=== PATIENT | female | born 1980 | race Caucasian/White ===

== ENCOUNTER 2016-10-17 22:18 | Outpatient (CLI) | payer BC ==
[~2016-10-17] VITALS: Ht 175.3 cm; Wt 142.4 kg
[~2016-10-17 22:18] MED LIST: B-COTAB18 PO; CHOL20009 PO; ERGO500037 PO; FISHOIL PO; FOLI400T18 PO; GLC/500 PO; KELP PO; LEVO200T PO; LEVO50TA PO; LORATAB PO; MULTTAB PO; OXYM0.0592 INTNAS; SERT-234 PO; ZINC1TAB PO
[2016-10-17 23:12] LABS: URINE APPEARANCE CLEAR (CLEAR); URINE BILIRUBIN NEG (NEG); URINE COLOR YELLOW; URINE EPITHELIAL CELL AUTO >30 /lpf (0-5); URINE NITRITE NEG (NEG); URINE PH 6.5 (4.5-7.5); URINE SPECIFIC GRAVITY 1.012 (1.000-1.030); UROBILINOGEN NEG (NEG); ZZURINE CULT IF INDIC CATH YES
[2016-10-17 23:19] VITALS: Ht 175.3 cm; Wt 142.4 kg
[2016-10-17 23:22] LABS: MANUAL MICROSCOPIC REQUIRED? NO; REVIEW REQ? NO
[2016-10-17] MEDS ORDERED: LEVO75TA5 PO (23:24)
--- NOTE | 2016-10-17 23:28 | Progress Note ---
Progress Note Date of Service Oct 17, 2016. Progress Note Last 24 Hours Test 10/17/16 22:30 Urine Color YELLOW Urine Appearance CLEAR Urine pH 6.5 Urine Specific [place] 1.012 Urine Protein NEG Urine Glucose (UA) NEG Urine Ketones NEG Urine Occult Blood NEG Urine Nitrite NEG Urine Bilirubin NEG Urine Urobilinogen NEG Urine Leukocyte Esterase TRACE Urine WBC (Auto) 5-10 /hpf Urine RBC (Auto) 0-4 /hpf Urine Hyaline Casts (Auto) 1-5 /lpf Urine Epithelial Cells (Auto) >30 /lpf Urine Bacteria (Auto) 1+ 38 F P0000 at 31.3 weeks with small dime sized clot earlier today when voiding and noted to be larger to quarter size. No pain or contractions. No nausea or vomiting. No history of kidney stones or hematuria or any frequency of urination. Did have some extra walking about a mile yesterday while at work. T Cat 1 with irregular contractions not felt by patient. Sterile speculum done with no leakage of fluid and no bleeding. Cervix is closed on exam. Will check urine and hydrate orally.
--- NOTE | 2016-10-18 00:27 | Progress Note ---
Progress Note Date of Service Oct 18, 2016. Progress Note Urine culture is pending. Patient not having any bleeding. Will encourage hydration and to call if any further spotting. She is to call the office for culture results tomorrow.
== END 2016-10-18 00:30 | disposition home or self-care (01) ==
LOC: C.OPB 22:18 → C.LD 22:18 → C.OPB 10-18 00:30
PROVIDERS: ATTEND Obstetrics & Gynecology
DX: O62.9 Abnormality of forces of labor, unspecified (principal); Z3A.31 31 weeks gestation of pregnancy

== ENCOUNTER 2016-11-19 05:47 | Inpatient (IN) | payer BC ==
[2016-11-18 12:06] LABS: BASO % 0.2 %; BASO ABS # 0.02 K/uL (0-0.2); COMPLETE YES; EOS % 0.5 %; HEMATOCRIT 33.7 % (37-47); IG% 0.8 %; LYMPH ABS # 1.89 K/uL (1.2-3.4); MEAN CELL VOLUME 85.8 fL (80-100); MEAN CORPUSCULAR HEMOGLOBIN 27.5 pg (25-34); MEAN PLATELET VOLUME 10.8 fL (7.4-10.4); NEUT % 70.5 %; PLATELET COUNT 310 K/uL (130-400); RED BLOOD COUNT 3.93 M/uL (4.2-5.4); WHITE BLOOD COUNT 9.43 K/uL (4.8-10.8)
[2016-11-19] VITALS (12 sets, daily range): BP systolic 109–121; BP diastolic 68–72; PULSE 60–71; TEMP 36.7–37; O2SAT 95–100; Ht 175.3 cm; Wt 145.0 kg
[~2016-11-19] VITALS: Ht 175.3 cm; Wt 145.0 kg
[~2016-11-19 05:47] MED LIST changes: -FISHOIL PO; -GLC/500 PO; -KELP PO; -LEVO50TA PO; +LEVO75TA5 PO
[2016-11-19] MEDS ORDERED: LACTATED RINGER'S 1000ML 1,000 ML IV SCH ×4 (05:57→09:00)
[2016-11-19] MEDS ORDERED: CEFAZOLIN IV 3,000 MG in DEXTROSE 5% 50ML IV SCH (06:00)
[2016-11-19] MEDS ORDERED: CITRIC ACID/SODIUM CITRATE 15 ML UDC PO SCH (06:00)
[2016-11-19 06:23] LABS: BASO % 0.2 %; BASO ABS # 0.02 K/uL (0-0.2); COMPLETE YES; EOS % 0.8 %; HEMATOCRIT 32.4 % (37-47); IG% 0.7 %; LYMPH % 23.1 %; LYMPH ABS # 2.37 K/uL (1.2-3.4); MEAN CELL VOLUME 84.4 fL (80-100); MEAN CORPUSCULAR HEMOGLOBIN 26.8 pg (25-34); MEAN CORPUSCULAR HGB CONC 31.8 g/dl (32-36); MEAN PLATELET VOLUME 10.8 fL (7.4-10.4); MONO % 6.3 %; NEUT % 68.9 %; PLATELET COUNT 318 K/uL (130-400); RED BLOOD COUNT 3.84 M/uL (4.2-5.4); WHITE BLOOD COUNT 10.24 K/uL (4.8-10.8)
--- NOTE | 2016-11-19 07:03 | History & Physical Bridge Note ---
H&P Re-Evaluation Bridge Note: I have examined the patient, reviewed the History & Physical and in the interval since the performance of the History & Physical I have noted the following changes of clinical significance: No changes noted
[2016-11-19] MEDS ORDERED: MoRPHine SULFATE PF 1 MG/ML 10 ML AMP/VIAL ONE (07:37)
[2016-11-19] MEDS ORDERED: PHENYLEPHRINE 100MCG/ML 5ML SYR ONE (08:27)
[2016-11-19] MEDS ORDERED: OXYTOCIN INJ 10 UNITS/ML VIAL ONE (08:27)
[2016-11-19] MEDS ORDERED: EpHEDrine SULFATE 50MG/5ML SYR ONE (08:27)
[2016-11-19] MEDS ORDERED: DIPHTHERIA/TETANUS/PERTUSSIS 0.5 ML SYR/VIAL IM. ONE (09:00)
[2016-11-19] MEDS ORDERED: SUPERCREAM 0.870 % 15GM JAR EXT PRN (09:00)
[2016-11-19] MEDS ORDERED: HYDROCORTISONE ACETATE 25 MG SUPP PR PRN (09:00)
[2016-11-19] MEDS ORDERED: BENZOCAINE 20% AER SPR 82.5 GM CAN EXT PRN (09:00)
[2016-11-19] MEDS ORDERED: MAGNESIUM HYDROXIDE SUSP 30 ML UDC PO PRN (09:00)
[2016-11-19] MEDS ORDERED: LANOLIN OINT EXT PRN ×2 (09:00)
[2016-11-19] MEDS: SIMETHICONE 80 MG CHEW PO SCH ×3 (09:00→20:28)
[2016-11-19] MEDS ORDERED: SENNA 8.6 MG TAB PO PRN (09:00)
[2016-11-19] MEDS ORDERED: IBUPROFEN 600 MG TAB PO PRN (09:00)
[2016-11-19] MEDS ORDERED: KETOROLAC TROMETHAMINE 30 MG/ML VIAL IV. PRN ×2 (09:00→09:30)
--- NOTE | 2016-11-19 09:08 | [facility] Post Operative Brief Note ---
Immediate Operative Summary Operative Date Nov 19, 2016. Pre-Operative Diagnosis Intrauterine at 36.2 weeks, Cholestasis of , Breech Post-Operative Diagnosis Same, Primary Caesarean Section for living male child at 0812 Procedure(s) Performed Primary Caesarean Section for living male child at [address] Jasmine Demo Specialist Surgeon(s) Dr. Ross Estimated Blood Loss 600 ml Findings Patient delivered a viable male in the rashawn breech presentation via primary section at 0812 on 11/19/16 with APGARs of 8 at 1 minute and 9 at 5 minutes. Please pediatricians notes for further baby assessment. Cord blood obtained. Intact placenta with a 3 VC delivered manually at 0813 and sent to pathology. Normal uterus and bilateral tubes and ovaries noted. Both patient and baby tolerated the surgery well and were sent to recovery with stable vital signs. Fluids (cc crystalloids) 1200 Specimens Placenta-exam cord blood Drains Marcus to Cherry Log Anesthesia Spinal Complication(s) None Disposition L&D
[2016-11-19] MEDS ORDERED: LACTATED RINGER'S 1000ML 500 ML IV PRN (09:17)
[2016-11-19] MEDS ORDERED: NALOXONE HCL INJ 0.08 MG in SYRINGE 1.8 ML IV PRN (09:17)
[2016-11-19] MEDS ORDERED: NALOXONE HCL INJ 1 MG in SODIUM CHLORIDE 0.9% 1000ML 1,000 ML IV PRN (09:17)
[2016-11-19] MEDS ORDERED: SODIUM CHLORIDE 0.9% 1000ML 1,000 ML IV PRN (09:17)
[2016-11-19] MEDS ORDERED: NO NARCOTICS OR SEDATIVES SCH (09:30)
[2016-11-19] MEDS ORDERED: LABETALOL HCL IV 5 MG/ML 20ML IV PRN (09:30)
[2016-11-19] MEDS ORDERED: ONDANSETRON INJ 2 MG/ML 2 ML VIAL IV PRN ×2 (09:30)
[2016-11-19] MEDS ORDERED: MoRPHine SULFATE 2 MG/ML CARP IV PRN (09:30)
[2016-11-19] MEDS ORDERED: FENTANYL CITRATE INJ 50 MCG/1 ML 2 ML VIAL IV PRN (09:30)
[2016-11-19] MEDS ORDERED: EpHEDrine SULFATE INJ 50 MG/ML AMP IV PRN ×2 (09:30)
[2016-11-19] MEDS ORDERED: DiphenhydrAMINE HCL 50 MG/ML VIAL IV PRN (09:30)
[2016-11-19] MEDS ORDERED: MoRPHine SULFATE PF 1 MG/ML 10 ML AMP/VIAL EPI PRN (09:30)
[2016-11-19] MEDS ORDERED: NALOXONE HCL 0.4 MG/1 ML VIAL/CARP IV PRN (09:30)
[2016-11-19] MEDS ORDERED: ATROPINE SULFATE 0.1 MG/ML 5ML SYR IV PRN (09:30)
[2016-11-19] MEDS ORDERED: MEPERIDINE HCL 25 MG/ML CARP IV PRN ×2 (09:30)
[2016-11-19] MEDS ORDERED: HYDROmorphone INJ 1 MG/ML SYR IV PRN (09:30)
--- NOTE | 2016-11-19 10:37 | OPERATIVE REPORT ---
DATE OF OPERATION: 11/19/2016 PREOPERATIVE DIAGNOSES: 1. Intrauterine at 36 weeks and 2 days gestation. 2. Cholestasis of . 3. Breech. POSTOPERATIVE DIAGNOSES: Same. OPERATIVE PROCEDURE: Primary low transverse section. SURGEON: Dr. Jasmine. JIG WORKER: Dr. Ross. ANESTHESIA: Spinal. ESTIMATED BLOOD LOSS: 600 mL. IV FLUIDS: 1200 mL crystalloids. URINE OUTPUT: 250 mL clear, yellow urine. SPECIMENS: Placenta and cord blood. DRAINS: Marcus to gravity. COMPLICATIONS: None. DISPOSITION: Labor delivery. OPERATIVE FINDINGS: The patient delivered a viable male infant in the rashawn breech presentation via primary section at 8:12 a.m. on 11/19/2016 with Apgars of 8 at 1 minute and 9 at 5 minutes. Please see documentation consultant's notes for further baby assessment. Cord blood was then obtained and intact placenta with 3-vessel cord was delivered manually at 813 and sent to pathology. Normal uterus and bilateral tubes and ovaries noted. Both patient and baby tolerated the surgery well and were sent to recovery with stable vital signs. OPERATIVE PROCEDURE IN DETAIL: The patient was taken to the operating room where spinal anesthesia was administered. The patient was then immediately placed in dorsal supine position with a left lateral tilt and was prepped and draped in a manner appropriate for the procedure. Once the anesthesia was found to be adequate, a Pfannenstiel skin incision was made 2 fingerbreadths above the pubic symphysis and was carried down through to a layer of the rectus fascia. The fascia was nicked in the midline and extended bilaterally with curved Lyons scissors. The superior aspect of the fascial incision was grasped with Tigre clamps, elevated, and the rectus muscles were dissected off with the use of the electrocautery and curved Lyons scissors. Likewise, the inferior aspect of the fascial incision was grasped with Tigre clamps and elevated and the rectus muscles were dissected off with the use of the curved Lyons scissors. The rectus muscles were in midline. Peritoneum was grasped with hemostats x2 and the peritoneum was entered with Metzenbaum scissors. Peritoneal incision was then extended cephalocaudally with gentle traction. An Omar retractor was then placed within the abdomen. The bladder blade was then placed within the abdomen as well. The vesicouterine peritoneum was identified and the bladder flap was created with Metzenbaum scissors and digital traction. The bladder flap was reincorporated beneath the Grant blade. A transverse incision was then made on the uterus and extended bilaterally with the bandage scissors. Clear amniotic fluid was noted. The baby was then delivered in the rashawn breech presentation with breech maneuvers without difficulty. Baby was bulb suctioned at delivery. Cord was clamped x2 and cut. The baby was immediately handed to awaiting documentation consultant for further evaluation and management. Cord blood was then obtained and intact placenta with 3-vessel cord was delivered through the incision manually and was sent to pathology. The uterus was then exteriorized and wrapped in a moist laparotomy sponge. The uterus was then cleared of any trailing membrane and debris with laparotomy sponge. The uterine incision was grasped with ring forceps at 4 quadrants and was closed with 0 Vicryl suture in continuous locking fashion. A second layer of 0 Vicryl suture was used in imbricating fashion to ensure hemostasis. Any residual bleeding was suture ligated with 0 Vicryl suture in a [id number] interrupted fashion. Excellent hemostasis was noted at the incision, the bladder flap was reapproximated with 3-0 Vicryl suture in continuous running fashion. The posterior cul-de-sac was then irrigated with warm saline solution. The uterus was then placed back within the abdomen in its normal anatomic position. The anterior cul-de-sac was then irrigated with warm saline solution as well. Inspection of the uterine incision was again noted to be hemostatic. Seprafilm was placed over the incision along the fundus of the uterus. All instruments were then removed from the abdomen as well as the Omar retractor. The peritoneum was then grasped with Samantha clamps and was closed with 2-0 Vicryl suture in continuous running fashion. The rectus muscles were reapproximated with 0 Vicryl suture in a [id number] interrupted fashion. The rectus fascia was then closed with 0 Vicryl suture in continuous running fashion. Subcutaneous tissue was reapproximated with 2-0 plain in a continuous running fashion. Skin was then closed with terry. Excellent hemostasis was noted through all tissue layers. All sponge and instrument counts were found to be correct x2. Both patient and baby tolerated the surgery well and were sent to recovery with stable vital signs. I attest to the content of the Intraoperative Record and any orders documented therein. Any exceptio ns are noted below.
--- NOTE | 2016-11-19 10:48 | Anesthesiology Progress Note ---
Anesthesia Post Op Note Date & Time Nov 19, 2016 at 10:47 Notes Mental Status: alert / awake / arousable, participated in evaluation Pt Amnestic to Procedure: Yes Nausea / Vomiting: adequately controlled Pain: adequately controlled Airway Patency, RR, SpO2: stable & adequate BP & HR: stable & adequate Hydration State: stable & adequate Neuraxial Anesthesia: was administered, sensory block is resolving Anesthetic Complications: no major complications apparent
[2016-11-19] MEDS: DiphenhydrAMINE HCL 50 MG/ML VIAL IV PRN ×2 (11:21→18:05)
[2016-11-19] MEDS: OXYTOCIN INJ 30 UNITS in LACTATED RINGER'S 1000ML 1,000 ML IV SCH ×2 (12:16→20:30)
[2016-11-19] MEDS: NALBUPHINE HCL INJ 10 MG/ML AMP IV PRN ×2 (13:35→20:34)
[2016-11-19] MEDS: DOCUSATE SODIUM 100 MG CAP PO SCH (20:28)
[2016-11-20] MEDS ORDERED: OXYCODONE/ACETAMINOPHEN 5-325 TAB PO PRN (01:45)
[2016-11-20] MEDS ORDERED: DC INTRASPINAL MORPHINE ONE (01:45)
[2016-11-20] MEDS ORDERED: ONDANSETRON INJ 2 MG/ML 2 ML VIAL IV PRN (01:45)
[2016-11-20] MEDS ORDERED: KETOROLAC TROMETHAMINE 30 MG/ML VIAL IV PRN (03:15)
[2016-11-20] MEDS ORDERED: KETOROLAC TROMETHAMINE 30 MG/ML VIAL ONE (03:21)
[2016-11-20 06:16] LABS: BASO % 0.2 %; BASO ABS # 0.02 K/uL (0-0.2); EOS % 0.7 %; HEMATOCRIT 26.7 % (37-47); IG% 0.4 %; LYMPH % 19.7 %; LYMPH ABS # 2.21 K/uL (1.2-3.4); MEAN CORPUSCULAR HEMOGLOBIN 26.7 pg (25-34); MEAN CORPUSCULAR HGB CONC 31.8 g/dl (32-36); MEAN PLATELET VOLUME 9.9 fL (7.4-10.4); MONO % 7.3 %; NEUT % 71.7 %; PLATELET COUNT 256 K/uL (130-400); RED BLOOD COUNT 3.18 M/uL (4.2-5.4); WHITE BLOOD COUNT 11.22 K/uL (4.8-10.8)
[2016-11-20] MEDS: LEVOTHYROXINE 200 MCG TAB PO SCH (06:39)
[2016-11-20] MEDS: LEVOTHYROXINE 75 MCG TAB PO SCH (06:39)
[2016-11-20 07:13] LABS: COMPLETE YES
[2016-11-20 07:45] VITALS: BP 119/77; PULSE 65; TEMP 36.6; O2SAT 100
--- NOTE | 2016-11-20 08:15 | OB/GYN Progress Note ---
PICK UP Progress Note Date of Service: Nov 20, 2016. Patient is seen and examined. She feels well, no complaints. Pain is under control with oral meds. Ambulating without dizziness Voiding without difficulty Tolerating clear diet with out N&V Desires to eat regular foof Flatus neg BM neg Bleeding is minimal No fever/ chills/ CP/ SOB/ N&V/ Leg pain Breast feeding without problems Date Time Temp Pulse Resp B/P Pulse Ox O2 Delivery O2 Flow Rate FiO2 11/19/16 23:40 100 Room Air 11/19/16 23:40 36.8 71 18 109/68 100 Room Air 11/19/16 23:40 18 100 11/19/16 22:10 20 99 11/19/16 21:15 20 95 11/19/16 20:10 18 99 11/19/16 19:25 36.7 62 18 112/71 100 Room Air 11/19/16 18:10 20 98 11/19/16 17:10 18 99 11/19/16 16:10 18 97 11/19/16 15:20 18 99 11/19/16 15:20 98 Room Air 11/19/16 15:20 37.0 60 18 111/68 99 Room Air 11/19/16 14:10 20 98 11/19/16 13:10 20 100 11/19/16 12:10 97 Room Air 11/19/16 12:10 20 97 11/19/16 12:10 36.8 65 20 121/72 97 Room Air 11/19/16 12:10 97 Room Air 8-Hour Column 11/19/16 11/20/16 11/20/16 16:00 00:00 08:00 Intake Total 341 ml 1917 ml 1178 ml Output Total 200 ml 350 ml 400 ml Balance 141 ml 1567 ml 778 ml 24-Hour Column 11/20/16 08:00 Intake Total 3436 ml Output Total 950 ml Balance 2486 ml PE: General: Alert, orientedx3, NAD CVS: S1S2 RRR Lungs; CTAB Abd: soft, NT, fundus firm, below Umbilicus Dressing: Clean, dry, intact Perineum intact, Lochia rubra minimal Ext; NT, no edema AP: 36 yo s/p C Section, pod# 1 VSS Afebrile doing well Continue routine postop care Encourage ambulation, PO intake All questions were answered
[2016-11-20] MEDS: FERROUS SULFATE 325 MG TAB PO SCH (08:37)
[2016-11-20] MEDS: SIMETHICONE 80 MG CHEW PO SCH ×4 (08:38→20:03)
[2016-11-20] MEDS: SERTRALINE HCL 100 MG TAB PO SCH (08:38)
[2016-11-20] MEDS: PRENATAL VITAMIN TAB PO SCH (08:38)
[2016-11-20] MEDS: DOCUSATE SODIUM 100 MG CAP PO SCH ×2 (08:38→20:03)
[2016-11-20 08:39] LABS: BUN/CREATININE RATIO 12.8 (10-20); CREATININE 0.72 mg/dl (0.60-1.20); POTASSIUM 3.6 mmol/L (3.5-5.1)
[2016-11-20 08:42] LABS: ALB/GLOB RATIO 0.5 (0.9-2)
[2016-11-20] MEDS ORDERED: CALCIUM CARBONATE 500 MG CHEWABLE PO PRN (08:45)
[2016-11-20 08:51] LABS: CALCIUM 8.3 mg/dl (8.5-10.1)
[2016-11-20] MEDS: OXYCODONE/ACETAMINOPHEN 5-325 TAB PO PRN ×4 (09:23→22:04)
[2016-11-20] MEDS: RANITIDINE HCL 150 MG TAB PO SCH (09:23)
[2016-11-20 15:50] VITALS: BP 131/84; PULSE 84; TEMP 37.1
[2016-11-20] MEDS ORDERED: BISACODYL 5 MG TABEC PO ONE (22:00)
[2016-11-21 00:05] VITALS: BP 126/84; PULSE 64; TEMP 36.9
[2016-11-21] MEDS: OXYCODONE/ACETAMINOPHEN 5-325 TAB PO PRN ×4 (01:47→17:16)
[2016-11-21 07:21] LABS: HEMATOCRIT 31.7 % (37-47)
--- NOTE | 2016-11-21 07:25 | OB/GYN Progress Note ---
ENCODING CLERK Progress Note Date of Service Nov 21, 2016. Subjective conversation w/ patient, physical exam Ambulation: ambulating normally Voiding: no voiding problems Passing Gas: Yes Diet Tolerance: Regular Diet Lochia: Small Feeding Type: Breast Feeding Pain: 10/04 Notes: Doing well, no concerns. Pain well controlled. Tolerating regular diet, +flatus , -BM. Ambulating without difficulty. Objective Vital Signs Date Time Temp Pulse Resp B/P Pulse Ox O2 Delivery O2 Flow Rate FiO2 11/21/16 00:05 Room Air 11/21/16 00:05 36.9 64 18 126/84 Room Air 11/20/16 15:50 37.1 84 16 131/84 Room Air 11/20/16 15:50 Room Air 11/20/16 07:45 Room Air 11/20/16 07:45 36.6 65 20 119/77 100 Room Air Physical Exam General Appearance: WELL-APPEARING Respiratory/Chest: chest non-tender, lungs clear Cardiovascular: regular rate, rhythm Abdomen: normal bowel sounds, soft Fundus: Firm Incision Description: Clean, Dry & Intact Extremities: normal range of motion, non-tender, no calf tenderness Laboratory Results Last 24 Hours Test 11/20/16 07:52 11/21/16 06:44 Sodium Level 138 mmol/L Potassium Level 3.6 mmol/L Chloride Level 108 mmol/L Carbon Dioxide Level 22 mmol/L Anion Gap 8.0 mmol/L Blood Urea Nitrogen 9 mg/dl Creatinine 0.72 mg/dl Est Creatinine Clear Calc Drug Dose 163.5 ml/min Estimated GFR () 123.1 Estimated GFR (Non- 106.2 BUN/Creatinine Ratio 12.8 Random Glucose 64 mg/dl Calcium Level 8.3 mg/dl Total Bilirubin 0.2 mg/dl Aspartate Amino Transf (AST/SGOT) 46 U/L Alanine Aminotransferase (ALT/SGPT) 111 U/L Alkaline Phosphatase 227 U/L Total Protein 5.8 gm/dl Albumin 2.0 gm/dl Globulin 3.8 gm/dl Albumin/Globulin Ratio 0.5 Hemoglobin 10.0 g/dL Hematocrit 31.7 % Assessment and Plan Post-Op Day Number: 2 Continue Routine Care: -Continue routine postop care -Advance activity as tolerated -Anticipate D/C home tomorrow AM
[2016-11-21] MEDS: LEVOTHYROXINE 200 MCG TAB PO SCH (07:45)
[2016-11-21] MEDS: PRENATAL VITAMIN TAB PO SCH (07:46)
[2016-11-21] MEDS: LEVOTHYROXINE 75 MCG TAB PO SCH (07:46)
[2016-11-21] MEDS: DOCUSATE SODIUM 100 MG CAP PO SCH ×2 (07:46→19:54)
[2016-11-21] MEDS: SIMETHICONE 80 MG CHEW PO SCH ×4 (07:46→19:54)
[2016-11-21] MEDS: FERROUS SULFATE 325 MG TAB PO SCH (07:46)
[2016-11-21] MEDS: RANITIDINE HCL 150 MG TAB PO SCH (07:47)
[2016-11-21 07:49] LABS: BUN/CREATININE RATIO 9.1 (10-20); CALCIUM 8.5 mg/dl (8.5-10.1); CREATININE 0.73 mg/dl (0.60-1.20); POTASSIUM 3.6 mmol/L (3.5-5.1)
[2016-11-21] MEDS: SERTRALINE HCL 100 MG TAB PO SCH (07:49)
[2016-11-21 07:51] LABS: ALB/GLOB RATIO 0.6 (0.9-2)
[2016-11-21 07:55] VITALS: O2SAT 99
[2016-11-21 08:35] VITALS: BP 136/86; PULSE 78; TEMP 36.8; O2SAT 99
[2016-11-21] MEDS ORDERED: BISACODYL 10 MG SUPP PR PRN (09:00)
[2016-11-21 16:45] VITALS: BP 131/83; PULSE 78; TEMP 36.8; O2SAT 100
[2016-11-22] VITALS: BP 137/84; PULSE 72; TEMP 36.9
[2016-11-22] MEDS: OXYCODONE/ACETAMINOPHEN 5-325 TAB PO PRN ×4 (00:02→17:14)
[2016-11-22 07:06] LABS: HEMATOCRIT 32.4 % (37-47); MEAN CELL VOLUME 85.5 fL (80-100); MEAN CORPUSCULAR HEMOGLOBIN 26.9 pg (25-34); MEAN CORPUSCULAR HGB CONC 31.5 g/dl (32-36); MEAN PLATELET VOLUME 9.9 fL (7.4-10.4); PLATELET COUNT 320 K/uL (130-400); RED BLOOD COUNT 3.79 M/uL (4.2-5.4); WHITE BLOOD COUNT 8.67 K/uL (4.8-10.8)
[2016-11-22] MEDS: RANITIDINE HCL 150 MG TAB PO SCH (08:32)
[2016-11-22] MEDS: PRENATAL VITAMIN TAB PO SCH (08:32)
[2016-11-22] MEDS: FERROUS SULFATE 325 MG TAB PO SCH (08:33)
[2016-11-22] MEDS: LEVOTHYROXINE 75 MCG TAB PO SCH (08:33)
[2016-11-22] MEDS: DOCUSATE SODIUM 100 MG CAP PO SCH (08:33)
[2016-11-22] MEDS: LEVOTHYROXINE 200 MCG TAB PO SCH (08:33)
[2016-11-22] MEDS: SERTRALINE HCL 100 MG TAB PO SCH (08:34)
[2016-11-22] MEDS: SIMETHICONE 80 MG CHEW PO SCH ×3 (08:34→17:15)
[2016-11-22 08:40] VITALS: BP 137/81; PULSE 91; TEMP 36.9; O2SAT 100
[2016-11-22] MEDS ORDERED: OXYC-57 PO (08:47)
--- NOTE | 2016-11-22 09:09 | OB/GYN Progress Note ---
PRODUCTION WELDER Progress Note Date of Service: Nov 22, 2016. Patient is seen and examined. She feels well, no complaints. Pain is under control with oral meds. Ambulating without dizziness Voiding without difficulty Tolerating regular diet with out N&V Flatus + BM Neg Bleeding is minimal No fever/ chills/ CP/ SOB/ N&V/ Leg pain Breast feeding without problems Discussed contraception with patient in details. Abstinence for 6 weeks, progestin only pills, Nexplanon, IUD's, Mirena and Paragard. Will decide at 6 wks pp Date Time Temp Pulse Resp B/P Pulse Ox O2 Delivery O2 Flow Rate FiO2 11/22/16 00:00 Room Air 11/22/16 00:00 36.9 72 18 137/84 11/21/16 16:45 100 Room Air 11/21/16 16:45 36.8 78 18 131/83 100 Room Air Test 10/17/16 22:30 11/18/16 11:03 11/19/16 06:08 11/20/16 05:54 Urine Color YELLOW Urine Appearance CLEAR Urine pH 6.5 Urine Specific [place] 1.012 Urine Protein NEG Urine Glucose (UA) NEG Urine Ketones NEG Urine Occult Blood NEG Urine Nitrite NEG Urine Bilirubin NEG Urine Urobilinogen NEG Urine Leukocyte Esterase TRACE H Urine WBC (Auto) 5-10 H Urine RBC (Auto) 0-4 Urine Hyaline Casts (Auto) 1-5 Urine Epithelial Cells (Auto) >30 H Urine Bacteria (Auto) 1+ H Immature Granulocyte % (Auto) 0.8 0.7 0.4 White Blood Count 9.43 10.24 11.22 H Red Blood Count 3.93 L 3.84 L 3.18 L Hemoglobin 10.8 L 10.3 L 8.5 L Hematocrit 33.7 L 32.4 L 26.7 L Mean Corpuscular Volume 85.8 84.4 84.0 Mean Corpuscular Hemoglobin 27.5 26.8 26.7 Mean Corpuscular Hemoglobin Concent 32.0 31.8 L 31.8 L Platelet Count 310 318 256 Mean Platelet Volume 10.8 H 10.8 H 9.9 Neutrophils (%) (Auto) 70.5 68.9 71.7 Lymphocytes (%) (Auto) 20.0 23.1 19.7 Monocytes (%) (Auto) 8.0 6.3 7.3 Eosinophils (%) (Auto) 0.5 0.8 0.7 Basophils (%) (Auto) 0.2 0.2 0.2 Neutrophils # (Auto) 6.64 H 7.05 H 8.05 H Lymphocytes # (Auto) 1.89 2.37 2.21 Monocytes # (Auto) 0.75 H 0.65 H 0.82 H Eosinophils # (Auto) 0.05 0.08 0.08 Basophils # (Auto) 0.02 0.02 0.02 Immature Granulocyte # (Auto) 0.08 H 0.07 H 0.04 H RDW Standard Deviation 41.9 41.6 RDW Coefficient of Variation 13.7 13.6 Red Blood Cell Morphology Unremarkable Test 11/20/16 07:52 11/21/16 06:44 11/22/16 06:37 11/22/16 09:04 Sodium Level 138 142 Pending Potassium Level 3.6 3.6 Pending Chloride Level 108 H 110 H Pending Carbon Dioxide Level 22 27 Pending Anion Gap 8.0 5.0 Pending Blood Urea Nitrogen 9 7 Pending Creatinine 0.72 0.73 Pending Est Creatinine Clear Calc Drug Dose 163.5 161.2 Estimated GFR () 123.1 121.1 Pending Estimated GFR (Non- 106.2 104.5 Pending BUN/Creatinine Ratio 12.8 9.1 L Pending Random Glucose 64 L 87 Pending Calcium Level 8.3 L 8.5 Pending Total Bilirubin 0.2 0.2 Pending Aspartate Amino Transferase (AST) 46 H 29 Pending Alanine Aminotransferase (ALT) 111 H 91 H Pending Alkaline Phosphatase 227 H 203 H Pending Total Protein 5.8 L 6.2 L Pending Albumin 2.0 L 2.2 L Pending Globulin 3.8 4.0 Pending Albumin/Globulin Ratio 0.5 L 0.6 L Pending Hemoglobin 10.0 L 10.2 L Hematocrit 31.7 L 32.4 L White Blood Count 8.67 Red Blood Count 3.79 L Mean Corpuscular Volume 85.5 Mean Corpuscular Hemoglobin 26.9 Mean Corpuscular Hemoglobin Concent 31.5 L RDW Standard Deviation 43.5 RDW Coefficient of Variation 14.0 Platelet Count 320 Mean Platelet Volume 9.9 PE: General: Alert, orientedx3, NAD CVS: S1S2 RRR Lungs; CTAB Abd: soft, NT, fundus firm, below Umbilicus Incision: Clean, dry, intact Perineum intact, Lochia rubra minimal Ext; NT, 1+/1+ edema, SCD's on AP: 36 yo s/p C Section, pod# 3 VSS Afebrile doing well LFT's improved, today's labs pending Has been on Percocet h/o weight loss surgery, unable to use NSAID's Continue routine postop care Encourage ambulation, PO intake All questions were answered D/C home after labs f/o next week for incision check
--- NOTE | 2016-11-22 09:11 | Discharge Instructions ---
Discharge Instructions Date of Service Nov 22, 2016. Admission Reason for Admission: Intrahepatic Cholestasis Of (Icp), Breech Discharge Discharge Diagnosis / Problem: Primary Csection Discharge Goals Goal(s): Routine recovery after Medications Continue Dispensed Medications: lansinoh Activity Recommendations Activity Limitations: as noted below Lifting Limitations: no more than 10 pounds Exercise/Sports Limitations: until after follow-up appointment May Resume Sexual Activity: after follow-up appointment Shower/Bathe: keep incision dry Driving or Machine Use: ACTIVITY RECOMMENDATIONS: * Gradual return to full activity over the next 2-3 weeks. * No lifting - nothing heavier than baby over the next 2-3 weeks. * Do not engage in vigorous exercise, sexual activity or sports until cleared by your physician. * Do not drive or operate any motorized equipment until cleared by your physician. * You may shower/bathe daily. BREAST CARE: If you are not breast feeding: * Wear a supportive bra 24 hours a day for one to two weeks. * Avoid stimulating your breasts and nipples as much as possible during the first few weeks after delivery. * When taking a shower, have the warm water hit your back, not breasts. * When your breasts feel full, apply ice packs. Usually three to four times a day helps ease the discomfort. * Take a mild pain medication (Tylenol/Motrin) when you are uncomfortable. If breast feeding: * Use breast milk to lubricate nipples. Lansinoh cream may be used for sore nipples. You do not need to remove cream prior to breast feeding. If using a different brand of cream, check the label for directions regarding removal of cream prior to nursing. * Wear a supportive bra. * If having problems with breasts or breast feeding, call a store sales consultant or your health care provider. OVER THE COUNTER MEDICATION: * For discomfort or pain, you may use Acetaminophen (Tylenol), Ibuprofen (Advil ), or Naproxen (Aleve) following the package directions. * For constipation you may use Colace following the package directions. SPECIAL CARE INSTRUCTIONS: When you are discharged from the hospital, it is important for you to follow the instructions listed below: * During the first week at home, you should be able to care for yourself and your baby. In addition, the usual light household activities are encouraged. * Limit your activities to the way you feel. Do not try to clean the house or move furniture. Be sensible. * If you actively engage in sports and have done so up until the time of your delivery, you may resume these activities as soon as you feel able. This may take up to one month or even longer. Use good judgment. * Continue to take your vitamins for at least six weeks after the of your baby. * Your diet need not be limited unless you were on a special diet before your delivery. Breast-feeding mothers need around 2500 calories per day and at least 64-80 ounces of fluid per day (8 to 10 glasses). * You should eat foods from the four major food groups. Crash diets or fad diets are to be avoided. Eating lean meats, fresh fruits and vegetables, low-fat dairy products, high fiber foods and a regular exercise program, will help you get back to your pre- weight without putting your health at risk. * Constipation is sometimes a problem after delivery. Take a mild laxative as needed. If breast feeding, Milk of Magnesia is acceptable to use. You may use a suppository or Fleets enema if no episiotomy. * A daily shower or tub bath is suggested. Be sure to thoroughly and gently dry the perineum. * A bloody vaginal discharge will usually continue until around four weeks post . A small amount of bleeding may continue for as long as six weeks. Vaginal discharge changes from the bright red bleeding after delivery to pink then brownish and finally yellowish-pink before becoming white and disappearing. * Bleeding may increase with activity. Your first period may come in 4-8 weeks. If you are breast feeding, your period may be delayed even longer. * Ewen (sex) can begin whenever both you and your partner feel comfortable and do not have any form of genital infection. It is recommended that you wait at least six weeks for internal and external healing to occur. If you have questions, please talk to your health care practitioner. A condom should be used to prevent infection and . * Foreplay, gentle intercourse and lubrication is very important the first several times to prevent pain. A water-based lubricant such as K-Y jelly or Astroglide may be used. * Tampons and/or Douching should be avoided until after six weeks check-up. * If you have RH negative blood and your baby is RH positive, you will receive RHOGAM by injection prior to discharge. The nurse will give you a card to keep with you that has the date and place that you received RHOGAM after delivery. * During your care, you had a Rubella screen done to check for the presence of rubella antibodies in your blood. If your test was negative, you will receive a Rubella vaccine prior to discharge. This vaccine may cause a fever, soreness at the injection site and flu-like symptoms. If these symptoms persist, notify your health care practitioner. is not advised for three months after a Rubella vaccine. * Verbalizes understanding of car seat law as reviewed with patient nursing. * Car Seat hand-out given and reviewed with patient by nursing. * Shaken baby information reviewed with patient by nursing. Call you doctor if: * Heavy bleeding (saturating several pads an hour) or passing clots the size of your fist. * A fever >101 degrees F (38.3 degrees C) on two occasions four hours apart and /or chills. * Unusual pain in the pelvic or vaginal areas. Pain should improve each day . * Call the doctor for any increased redness, drainage or swelling around the incision and any pain unrelieved by prescribed pain medication. * Any signs or symptoms of phlebitis (possible blood clots forming in the veins ): leg pain, warm, red or swollen area on leg. * "Baby Blues" lasting longer than two weeks. If you have any questions or concerns, call your health care practitioner at . FOLLOW-UP VISIT: * Incision check (staple removal) in 1 week. Please call doctor's office at to set up appointment. * Please call the office at to schedule a 6 week examination. It is important you keep this appointment. * It is important for you to make arrangements for either yearly or twice yearly check-ups thereafter. . Current Hospital Diet Patient's current hospital diet: Regular OB Diet Discharge Diet Recommended Diet: Regular Diet Procedures Procedures Performed: Primary Caesarean Section for living male child at 0812 Pending Studies Studies pending at discharge: no Medical Emergencies . Who to Call and When: Medical Emergencies: If at any time you feel your situation is an emergency, please call 911 immediately. . Non-Emergent Contact Non-Emergency issues call your: Surgeon Call Non-Emergent contact if: temperature is above 100.5, your pain is not controlled, your pain is worsening, wound has increased drainage, wound has increased redness, wound has increased pain, you have any medication questions . . "Provider Documentation" section prepared by Dot Cueva. . VTE Core Measure Inpt VTE Proph given/why not?: Treatment not indicated
[2016-11-22 10:49] LABS: BUN/CREATININE RATIO 9.4 (10-20); CALCIUM 8.4 mg/dl (8.5-10.1); CREATININE 0.82 mg/dl (0.60-1.20); POTASSIUM 3.6 mmol/L (3.5-5.1)
[2016-11-22 10:51] LABS: ALB/GLOB RATIO 0.6 (0.9-2)
[2016-11-22 16:00] VITALS: BP 123/70; PULSE 84; TEMP 36.6
[2016-11-22 17:56] VITALS: BP_DIAS 70; PULSE 84; TEMP 36.6
--- NOTE | 2016-12-04 07:56 | Discharge Summary ---
Discharge Summary Date of Service December 04, 2016. Discharge Summary Admission Date: Nov 19, 2016 at 05:47 Discharge Date: Nov 22, 2016 Discharge Disposition: Home Principal Diagnosis: Term IUP, Cholestasis of , Breech Procedures: Primary low transverse section Medication Reconciliation New Medications: Oxycodone/Acetaminophen 5MG/325MG (Percocet 5MG/325MG) Tab 1 TAB PO Q4H PRN for Pain - Pain Scale 1-5, #30 TAB PAIN Continued Medications: Cholecalciferol (Vitamin D) 2,000 Unit Tab 1 TAB PO DAILY Levothyroxine Sodium (Synthroid) 200 Mcg Tab 200 MCG PO DAILY, TAB Levothyroxine Sodium (Levothyroxine Sodium) 75 Mcg Tab 1 TAB PO DAILY for 30 Days, #30 TAB 5 Refills Multivitamins/Minerals (Mvi With Minerals) Tab 1 TAB PO DAILY, TAB Sertraline (Zoloft) 100 Mg Tab 100 MG PO DAILY, TAB Admission Information HPI (per Admitting provider): Patient is a at term who was recently diagnosed with cholestasis of due to severe itching and elevated total bile acids. Baby is in the breech position and therefore recommended to proceed with a primary section per [facility]. Patient declines External cephalic version. Risks benefits and alternatives were discussed and informed consent was signed. Physical Exam (per Admitting): General Appearance: WD/WN, no apparent distress Respiratory/Chest: chest non-tender, lungs clear Cardiovascular: regular rate, rhythm Abdomen/GI: normal bowel sounds, soft Neurologic/Psych: alert, oriented x 3 Skin: normal color, warm/dry, no rash Hospital Course Patient underwent a primary section on the day of admission without any intraoperative complications. The patient tolerated the surgery well and was sent to recovery with stable vital signs. On POD # 1 her oliver catheter was removed and diet and activity were advanced as tolerated. Her incision remained clean,dry and intact. Pain was well controlled throughout her admission. Hgb remained stable and Liver enzymes stabilized in normal range. She was discharged home on POD # 3 with discharge instructions. Total time spent on discharge = 30 mins This includes examination of the patient, discharge planning, medication reconciliation, and communication with other providers. Discharge Instructions ACTIVITY RECOMMENDATIONS: * Gradual return to full activity over the next 2-3 weeks. * No lifting - nothing heavier than baby over the next 2-3 weeks. * Do not engage in vigorous exercise, sexual activity or sports until cleared by your physician. * Do not drive or operate any motorized equipment until cleared by your physician. * You may shower/bathe daily. BREAST CARE: If you are not breast feeding: * Wear a supportive bra 24 hours a day for one to two weeks. * Avoid stimulating your breasts and nipples as much as possible during the first few weeks after delivery. * When taking a shower, have the warm water hit your back, not breasts. * When your breasts feel full, apply ice packs. Usually three to four times a day helps ease the discomfort. * Take a mild pain medication (Tylenol/Motrin) when you are uncomfortable. If breast feeding: * Use breast milk to lubricate nipples. Lansinoh cream may be used for sore nipples. You do not need to remove cream prior to breast feeding. If using a different brand of cream, check the label for directions regarding removal of cream prior to nursing. * Wear a supportive bra. * If having problems with breasts or breast feeding, call a cloud consultant or your health care provider. OVER THE COUNTER MEDICATION: * For discomfort or pain, you may use Acetaminophen (Tylenol), Ibuprofen (Advil ), or Naproxen (Aleve) following the package directions. * For constipation you may use Colace following the package directions. SPECIAL CARE INSTRUCTIONS: When you are discharged from the hospital, it is important for you to follow the instructions listed below: * During the first week at home, you should be able to care for yourself and your baby. In addition, the usual light household activities are encouraged. * Limit your activities to the way you feel. Do not try to clean the house or move furniture. Be sensible. * If you actively engage in sports and have done so up until the time of your delivery, you may resume these activities as soon as you feel able. This may take up to one month or even longer. Use good judgment. * Continue to take your vitamins for at least six weeks after the of your baby. * Your diet need not be limited unless you were on a special diet before your delivery. Breast-feeding mothers need around 2500 calories per day and at least 64-80 ounces of fluid per day (8 to 10 glasses). * You should eat foods from the four major food groups. Crash diets or fad diets are to be avoided. Eating lean meats, fresh fruits and vegetables, low-fat dairy products, high fiber foods and a regular exercise program, will help you get back to your pre- weight without putting your health at risk. * Constipation is sometimes a problem after delivery. Take a mild laxative as needed. If breast feeding, Milk of Magnesia is acceptable to use. You may use a suppository or Fleets enema if no episiotomy. * A daily shower or tub bath is suggested. Be sure to thoroughly and gently dry the perineum. * A bloody vaginal discharge will usually continue until around four weeks post . A small amount of bleeding may continue for as long as six weeks. Vaginal discharge changes from the bright red bleeding after delivery to pink then brownish and finally yellowish-pink before becoming white and disappearing. * Bleeding may increase with activity. Your first period may come in 4-8 weeks. If you are breast feeding, your period may be delayed even longer. * [place]ill (sex) can begin whenever both you and your partner feel comfortable and do not have any form of genital infection. It is recommended that you wait at least six weeks for internal and external healing to occur. If you have questions, please talk to your health care practitioner. A condom should be used to prevent infection and . * Foreplay, gentle intercourse and lubrication is very important the first several times to prevent pain. A water-based lubricant such as K-Y jelly or Astroglide may be used. * Tampons and/or Douching should be avoided until after six weeks check-up. * If you have RH negative blood and your baby is RH positive, you will receive RHOGAM by injection prior to discharge. The nurse will give you a card to keep with you that has the date and place that you received RHOGAM after delivery. * During your care, you had a Rubella screen done to check for the presence of rubella antibodies in your blood. If your test was negative, you will receive a Rubella vaccine prior to discharge. This vaccine may cause a fever, soreness at the injection site and flu-like symptoms. If these symptoms persist, notify your health care practitioner. is not advised for three months after a Rubella vaccine. * Verbalizes understanding of car seat law as reviewed with patient nursing. * Car Seat hand-out given and reviewed with patient by nursing. * Shaken baby information reviewed with patient by nursing. Call you doctor if: * Heavy bleeding (saturating several pads an hour) or passing clots the size of your fist. * A fever >101 degrees F (38.3 degrees C) on two occasions four hours apart and /or chills. * Unusual pain in the pelvic or vaginal areas. Pain should improve each day . * Call the doctor for any increased redness, drainage or swelling around the incision and any pain unrelieved by prescribed pain medication. * Any signs or symptoms of phlebitis (possible blood clots forming in the veins ): leg pain, warm, red or swollen area on leg. * "Baby Blues" lasting longer than two weeks. If you have any questions or concerns, call your health care practitioner at . FOLLOW-UP VISIT: * Incision check (staple removal) in 1 week. Please call doctor's office at to set up appointment. * Please call the office at to schedule a 6 week examination. It is important you keep this appointment. * It is important for you to make arrangements for either yearly or twice yearly check-ups thereafter.
== END 2016-11-22 18:20 | disposition home or self-care (01) | DRG 765 ==
LOC: C.LD 05:47 → EDSTATUS 09:00 → C.OBG 11:52
PROVIDERS: ADMIT Obstetrics & Gynecology; ATTEND Obstetrics & Gynecology
PROC: 10D00Z1 Extraction of Products of Conception, Low, Open Approach (ICD-10-PCS; principal; 2016-11-19 07:30)
DX: O26.62 Liver and biliary tract disorders in childbirth (principal); K83.1 Obstruction of bile duct; O32.1XX0 Maternal care for breech presentation, not applicable or unspecified; Z3A.36 36 weeks gestation of pregnancy; Z37.0 Single live birth; O09.523 Supervision of elderly multigravida, third trimester; O99.344 Other mental disorders complicating childbirth; F43.21 Adjustment disorder with depressed mood; O99.284 Endocrine, nutritional and metabolic diseases complicating childbirth; E03.8 Other specified hypothyroidism; J31.0 Chronic rhinitis; O99.824 Streptococcus B carrier state complicating childbirth; O75.89 Other specified complications of labor and delivery; Z79.899 Other long term (current) drug therapy; Z91.040 Latex allergy status; Z87.891 Personal history of nicotine dependence; Z98.84 Bariatric surgery status; Z80.1 Family history of malignant neoplasm of trachea, bronchus and lung; Z82.49 Family history of ischemic heart disease and other diseases of the circulatory system; Z80.8 Family history of malignant neoplasm of other organs or systems; Z84.89 Family history of other specified conditions